=== PATIENT | male | born 1965 | race Caucasian/White ===

== ENCOUNTER 2018-05-15 12:36 | Day surgery (SDC) | payer BC ==
[2018-05-15] MEDS ORDERED: Sodium Chloride 0.9% 10 ML Syringe FLUSH PRN (12:45)
[2018-05-15] MEDS: Lactated Ringers 1,000 ML IV SCH (13:35)
[2018-05-15] MEDS ORDERED: Propofol 200 MG/20 ML SDV ONE ×2 (14:06→14:10)
[2018-05-15] MEDS ORDERED: fentaNYL 100 MCG/2 ML SDV ONE ×2 (14:06→14:10)
[2018-05-15] MEDS ORDERED: Midazolam 1 MG/ML 2 ML SDV ONE ×2 (14:06→14:10)
--- NOTE | 2018-05-15 14:10 | PCM.PN ---
- General Info Date of Service: 05/15/18 - Review of Systems Systems Review Comment:: 53-year-old male here for his initial screening colonoscopy. He denies any family history of colon cancer or any personal history of rectal bleeding. He is medically stable to proceed today. His recent history and physical is reviewed and no significant changes noted. I have discussed the proposed colonoscopy with the patient. Risks such as but not limited to bleeding and GI injury reviewed. He appears to understand and agrees to proceed - Patient Data Vitals - Most Recent: Last Vital Signs Temp 98.3 F 05/15/18 13:10 Pulse 82 05/15/18 13:10 Resp 20 05/15/18 13:10 BP 120/71 05/15/18 13:10 Pulse Ox 95 05/15/18 13:10 Weight - Most Recent: 131.542 kg Med Orders - Current: Current Medications Lactated Ringer's (Ringers, Lactated) 1,000 mls @ 70 mls/hr IV ASDIRECTED CHRISTOPHER Last Admin: 05/15/18 13:35 Dose: 70 mls/hr Sodium Chloride (Saline Flush) 10 ml FLUSH ASDIRECTED PRN PRN Reason: Keep Vein Open Discontinued Medications Fentanyl (Sublimaze) Confirm Administered Dose 100 mcg .ROUTE .STK-MED ONE Stop: 05/15/18 14:07 Midazolam HCl (Versed 1 Mg/Ml) Confirm Administered Dose 2 mg .ROUTE .STK-MED ONE Stop: 05/15/18 14:07 Propofol (Diprivan 20 Ml) Confirm Administered Dose 400 mg .ROUTE .STK-MED ONE Stop: 05/15/18 14:07 - Problem List Review Problem List Initiated/Reviewed/Updated: Yes - Assessment Assessment:: Colon Cancer Screening - Plan Plan:: Colonoscopy
--- NOTE | 2018-05-15 14:59 | PCM.OPNOTE ---
- General Post-Op/Procedure Note Date of Surgery/Procedure: 05/15/18 Operative Procedure(s): Colonoscopy with Polypectomy Findings: 3 moderate sized polyps Pre Op Diagnosis: Colon Cancer Screening Post-Op Diagnosis: Colon Polyps Anesthesia Technique: MAC Primary Surgeon: Galileo Weaver Pathology: Colon Polyps Output, Urine Amount: 0 EBL in mLs: 0 Complications: None Condition: Good Free Text/Narrative:: Intake & Output 05/14/18 05/15/18 05/15/18 22:59 06:59 14:59 Intake Total 600 Balance 600
[2018-05-15 17:00] VITALS: BP 127/84
--- NOTE | 2018-05-16 09:55 | OR ---
Date of Procedure: 05/15/2018 REFERRING PROVIDER: Jesse Dior PA-C PREOPERATIVE DIAGNOSIS: Colon cancer screening. POSTOPERATIVE DIAGNOSIS: Colon polyps. OPERATIONS PERFORMED: Colonoscopy with polypectomy. INDICATIONS FOR SURGERY: This 53-year-old male presents today for his initial screening colonoscopy. He denies any recent rectal bleeding or family history of colon cancer. FINDINGS: Three polyps were noted on today's exam. These were all pedunculated polyps. There was a 7-mm polyp in the sigmoid colon, 25 cm from the anal verge; a 12-mm polyp in the proximal transverse colon; a 14-mm polyp in the hepatic flexure. The remainder of the colon appears normal. DESCRIPTION OF PROCEDURE: The patient was taken to the operating room. He was given intravenous sedation, and with him in the left lateral decubitus position, digital rectal exam was performed showing no rectal masses. The Olympus colonoscope was inserted into the rectum. Retroflexed examination of the rectal canal was performed. The scope was then carefully advanced under direct visualization through the colon to the proximal transverse area where the polyp in this area was identified and removed with a cautery snare. The scope was advanced to the hepatic flexure, where the polyp from this location was also removed with a cautery snare. The scope was then advanced to the cecum and careful examination of the cecum showed no sign of any pathology. No indication of other polyps or lesions. The cecal identity was confirmed by noting the normal internal cecal anatomy and identifying the light to transilluminate the abdominal wall in the right lower quadrant. After examining the cecum, the scope was slowly withdrawn sequentially re-examining the colonic segments. In the sigmoid colon, the above-described polyp there, was identified and also removed with a cautery snare. All the polyps removed during this procedure were retrieved and will be submitted to pathology. The scope was then further withdrawn, and after the exam had been completed and with no sign of any complication, the scope was removed and the patient was taken from the operating room in satisfactory condition. ESTIMATED BLOOD LOSS: Zero. COMPLICATIONS: None. PROGNOSIS: Good. ANUJ Weaver MD /[id number]
== END 2018-05-15 15:50 | disposition home or self-care (01) ==
LOC: LL.SDS 12:36
PROVIDERS: ATTEND Surgery
DX: Z12.11 Encounter for screening for malignant neoplasm of colon (principal); D12.3 Benign neoplasm of transverse colon; K63.5 Polyp of colon; I10 Essential (primary) hypertension; E78.2 Mixed hyperlipidemia; Z79.899 Other long term (current) drug therapy
CPT/HCPCS: J2250; J2704; J3010; J7120

== ENCOUNTER 2019-08-31 20:47 | Emergency (ER) | payer BC ==
[2019-08-31 21:01] VITALS: BP 140/89; PULSE 84
--- NOTE | 2019-08-31 21:03 | EDM.PDOC ---
ED HPI GENERAL MEDICAL PROBLEM - General Chief Complaint: General Stated Complaint: URINARY BLEEDING Time Seen by Provider: 08/31/19 20:56 Source of Information: Reports: Patient History Limitations: Reports: No Limitations - History of Present Illness INITIAL COMMENTS - FREE TEXT/NARRATIVE: Patient comes to ER with complaint of two episodes of hematuria that he note today. No history of hematuria previously. Complains of small amount of aching in bladder area since last void. Denies fever/flank pain/sweating/discharge/ other abdominal pain/frequency. Hx of kidney stones. No emesis/nausea. No other changes/complaints/injuries. - Related Data Allergies Allergy/AdvReac Type Severity Reaction Status Date / Time No Known Allergies Allergy Verified 08/31/19 21:03 Home Meds: Home Meds Amitriptyline [Elavil] 25 mg PO BEDTIME 12/15/14 [History] atorvaSTATin [Lipitor] 20 mg PO BEDTIME 12/15/14 [History] Doxazosin Mesylate [Cardura] 4 mg PO BEDTIME 08/31/19 [History] Past Medical History Cardiovascular History: Reports: High Cholesterol, Hypertension Genitourinary History: Reports: Renal Calculus Musculoskeletal History: Reports: Osteoarthritis Neurological History: Reports: None Endocrine/Metabolic History: Reports: Obesity/BMI 30+ Other Endocrine/Metabolic History: hx of hyperglycemia Dermatologic History: Reports: None - Past Surgical History Male Surgical History: Social & Family History - Tobacco Use Smoking Status *Q: Never Smoker - Caffeine Use Caffeine Use: Reports: Soda - Alcohol Use Alcohol Use in Last Twelve Months: No - Recreational Drug Use Recreational Drug Use: No Drug Use in Last 12 Months: No ED ROS GENERAL - Review of Systems Review Of Systems: See Below Constitutional: Reports: No Symptoms HEENT: Reports: No Symptoms Respiratory: Reports: No Symptoms Cardiovascular: Reports: No Symptoms GI/Abdominal: Reports: Other (mild suprapubic ache). Denies: Constipation, Diarrhea, Decreased Appetite, Difficulty Swallowing, Nausea, Vomiting : Reports: Hematuria. Denies: Discharge, Dysuria, Flank Pain, Frequency, Pain , Urgency, Urinary Retention Musculoskeletal: Reports: No Symptoms Skin: Reports: No Symptoms Neurological: Reports: No Symptoms Psychiatric: Reports: No Symptoms ED EXAM, GENERAL - Physical Exam Exam: See Below Exam Limited By: No Limitations General Appearance: Alert, No Apparent Distress, Obese Eye Exam: Bilateral Eye: EOMI, PERRL Nose: No: Nasal Deformity, Nasal Swelling, Nasal Drainage Throat/Mouth: Normal Lips, Normal Voice, No Airway Compromise Head: Atraumatic, Normocephalic Neck: Normal Inspection, Supple, Non-Tender, Full Range of Motion Respiratory/Chest: No Respiratory Distress, Lungs Clear, Normal Breath Sounds, No Accessory Muscle Use, Chest Non-Tender Cardiovascular: Regular Rate, Rhythm, No Murmur GI/Abdominal: Normal Bowel Sounds, Soft, Non-Tender, No Distention (obese) (Male) Exam: Circumcised. No: Scrotal Swelling, Scrotum Tenderness (L), Scrotum Tenderness (R), Suprapubic Fullness, Testicular Tenderness (L), Testicular Tenderness (R), Urethral Discharge Rectal (Males) Exam: Deferred Back Exam: Normal Inspection. No: CVA Tenderness (L), CVA Tenderness (R) Extremities: Non-Tender, Normal Capillary Refill Neurological: Alert, Normal Cognition, Normal Gait Psychiatric: Normal Affect, Normal Mood Skin Exam: Warm, Dry, Intact, Normal Color Course - Vital Signs Last Recorded V/S: Last Vital Signs Temp 36.8 C 08/31/19 20:50 Pulse 84 08/31/19 20:50 Resp 16 08/31/19 20:50 BP 140/89 08/31/19 20:50 Pulse Ox 98 08/31/19 20:50 - Orders/Labs/Meds Orders: Active Orders 24 hr Category Date Time Status Abdomen Pelvis wo Cont [CT] Stat Exams 08/31/19 21:21 Ordered Ondansetron [Zofran ODT] Med 08/31/19 22:16 Once 4 mg PO ONETIME ONE Tamsulosin [Flomax] Med 08/31/19 22:16 Once 0.4 mg PO ONETIME ONE Labs: Laboratory Tests 08/31/19 08/31/19 08/31/19 Range/Units 20:57 21:05 21:05 WBC 9.9 (4.0-10.2) K/uL RBC 4.60 (4.33-5.41) M/uL Hgb 14.5 (13.1-16.8) g/dL Hct 42.5 (39.0-49.0) % MCV 92.4 (84.0-98.0) fL MCH 31.5 (28.2-33.3) pg MCHC 34.1 (31.7-36.0) g/dL RDW 13.1 (11.2-14.1) % Plt Count 237 (150-350) K/uL Neut % (Auto) 75.7 (45.0-80.0) % Lymph % (Auto) 12.4 (10.0-50.0) % [place] % (Auto) 9.4 (2.0-14.0) % Eos % (Auto) 2.1 (0.0-5.0) % Baso % (Auto) 0.4 (0.0-2.0) % Neut # (Auto) 7.52 H (1.40-7.00) K/uL Lymph # (Auto) 1.23 (0.50-3.50) K/uL [place] # (Auto) 0.93 (0.00-1.00) K/uL Eos # (Auto) 0.21 (0.00-0.50) K/uL Baso # (Auto) 0.04 (0.00-0.20) K/uL Sodium 138 (136-145) mmol/L Potassium 3.3 L (3.5-5.1) mmol/L Chloride 102 (98-107) mmol/L Carbon Dioxide 25.4 (21.0-32.0) mmol/L BUN 14 (7-18) mg/dL Creatinine 0.72 (0.51-1.17) mg/dL Est Cr Clr Drug Dosing 147.35 mL/min Estimated GFR (MDRD) > 60 mL/min Glucose 154 H (74-106) mg/dL Calcium 8.3 L (8.5-10.1) mg/dL Total Bilirubin 0.6 (0.2-1.0) mg/dL AST 24 (15-37) U/L ALT 38 (12-78) U/L Alkaline Phosphatase 79 (46-116) IU/L Total Protein 7.1 (6.4-8.2) g/dL Albumin 3.7 (3.4-5.0) g/dL Specimen Type Urinblad Urine Color Red Urine Appearance Cloudy Urine pH 7.0 (5.0-9.0) Ur Specific Louann 1.020 (1.005-1.030) Urine Protein Trace H (NEGATIVE) mg/dL Urine Glucose (UA) Negative (NEGATIVE) mg/dL Urine Ketones Negative (NEGATIVE) mg/dL Urine Occult Blood Large H (NEGATIVE) Urine Nitrite Negative (NEGATIVE) Urine Bilirubin Negative (NEGATIVE) Urine Urobilinogen 0.2 (0.2-1.0) E.U./dL Ur Leukocyte Esterase Negative (NEGATIVE) Urine RBC 75-100 H /HPF Urine WBC Not seen /HPF Ur Epithelial Cells Not seen /LPF Urine Bacteria Few (NONE TO FEW) /HPF Meds: Medications Discontinued Medications Generic Name Dose Route Start Last Admin Trade Name Freq PRN Reason Stop Dose Admin Potassium Chloride 40 meq 08/31/19 21:30 08/31/19 22:05 Klor-Con M20 PO 08/31/19 21:31 40 meq ONETIME ONE Administration - Radiology Interpretation CT Results Date: 08/31/19 CT Results Time: 22:10 (3.9 mm stone at UVJ on left) - Re-Assessments/Exams Free Text/Narrative Re-Assessment/Exam: 08/31/19 21:06 UA/CBC/Chem ordered. 08/31/19 21:22 CT of abdomen and pelvis ordered. UA showed elevated RBCs but normal WBC. CBC unremarkable. Chem noted K of 3.3 Free Text/Narrative Re-Assessment/Exam: 08/31/19 22:17 CT scan identified renal calculus at left UVJ. Will give patient Toradol take home pack for prn pain. Also single Zofran and Flomax dose. Precautions reviewed. To follow up as needed if worsening problems develop/stone does not pass. Departure - Departure Time of Disposition: 22:30 Disposition: Home, Self-Care 01 Condition: Good Clinical Impression: Kidney stone on left side - Discharge Information *PRESCRIPTION DRUG MONITORING PROGRAM REVIEWED*: Not Applicable *COPY OF PRESCRIPTION DRUG MONITORING REPORT IN PATIENT ROGER: Not Applicable Instructions: Kidney Stones, [id number] Referrals: Jesse Dior PA [Primary Care Provider] - Forms: ED Department Discharge Additional Instructions: Drink plenty of water. Take Toradol one tab every 6 hours prn pain. Do not take any Aleve/naprosyn/ibuprofen if you are taking Toradol. However you CAN take Tylenol at same time. Follow up for recheck if stone has not passed within several days or if you have sudden worsening problems. Sepsis Event Note - Focused Exam Vital Signs: Vital Signs Temp Pulse Resp BP Pulse Ox 08/31/19 20:50 36.8 C 84 16 140/89 98 Date Exam was Performed: 08/31/19 Time Exam was Performed: 22:16 - My Orders Last 24 Hours: My Active Orders 08/31/19 21:21 Abdomen Pelvis wo Cont [CT] Stat 08/31/19 22:16 Ondansetron [Zofran ODT] 4 mg PO ONETIME ONE Tamsulosin [Flomax] 0.4 mg PO ONETIME ONE - Assessment/Plan Last 24 Hours: My Active Orders 08/31/19 21:21 Abdomen Pelvis wo Cont [CT] Stat 08/31/19 22:16 Ondansetron [Zofran ODT] 4 mg PO ONETIME ONE Tamsulosin [Flomax] 0.4 mg PO ONETIME ONE
[2019-08-31 21:24] LABS: CHLORIDE,CL 102 mmol/L (98-107); SODIUM,NA 138 mmol/L (136-145)
[2019-08-31] MEDS ORDERED: Potassium Chloride 20 MEQ Tab.ER PO ONE (21:30)
[2019-08-31] MEDS ORDERED: Tamsulosin 0.4 MG Cap.ER PO ONE (22:16)
[2019-08-31] MEDS ORDERED: Ondansetron 4 MG Tab.DIS PO ONE (22:16)
== END 2019-08-31 22:30 | disposition home or self-care (01) ==
LOC: LL.ED 20:47
DX: N20.2 Calculus of kidney with calculus of ureter (principal); I10 Essential (primary) hypertension; E78.00 Pure hypercholesterolemia, unspecified; E66.9 Obesity, unspecified; Z68.35 Body mass index [BMI] 35.0-35.9, adult; Z79.899 Other long term (current) drug therapy
CPT/HCPCS: 36415; 74176; 80053; 81001; 85025; 99284-25; A9270-GY

== ENCOUNTER 2023-06-13 10:40 | Day surgery (SDC) | payer BC ==
[~2023-06-13 10:40] MED LIST: Lactated Ringers 1,000 ML IV SCH; Midazolam 1 MG/ML 2 ML SDV ONE; Propofol 200 MG/20 ML SDV ONE; Sodium Chloride 0.9% 10 ML Syringe FLUSH PRN
[2023-06-13 13:00] VITALS: BP 129/83; PULSE 69
== END 2023-06-13 13:15 | disposition home or self-care (01) ==
LOC: LL.SDS 10:40
PROVIDERS: ATTEND Surgery
DX: Z12.11 Encounter for screening for malignant neoplasm of colon (principal); E78.2 Mixed hyperlipidemia; I10 Essential (primary) hypertension; Z79.899 Other long term (current) drug therapy
CPT/HCPCS: 00812; 82947; J2250; J2704; J7120

== ENCOUNTER 2023-08-19 21:15 | Emergency (ER) | payer BC ==
[2023-08-19] MEDS ORDERED: Sodium Chloride 0.9% 10 ML Syringe FLUSH PRN (21:20)
[2023-08-19] MEDS ORDERED: Tamsulosin 0.4 MG Cap.ER PO ONE (21:21)
[2023-08-19] MEDS ORDERED: Ketorolac 15 MG/ML SDV IVPUSH ONE (21:21)
[2023-08-19] MEDS ORDERED: Sodium Chloride 0.9% 1,000 ML IV ONE (21:21)
[2023-08-19] MEDS ORDERED: Ondansetron 4 MG/2 ML SDV IVPUSH ONE (21:31)
[2023-08-19 21:36] LABS: APPEARANCE,URINE CLEAR; BILIRUBIN,URINE SMALL (NEGATIVE); COLOR,URINE YELLOW; GLUCOSE,URINE NEGATIVE (NEGATIVE); KETONES,URINE NEGATIVE (NEGATIVE); LEUKOCYTE ESTERASE,URINE NEGATIVE (NEGATIVE); NITRITE,URINE NEGATIVE (NEGATIVE); OCCULT BLOOD,URINE NEGATIVE (NEGATIVE); PH,URINE 5.5 (5.0-9.0); PROTEIN,URINE 30 mg/dL (NEGATIVE); UROBILINOGEN,URINE 0.2 E.U./dL (0.2-1.0)
[2023-08-19 21:40] LABS: BASOPHILS ABSOLUTE AUTO 0.03 K/uL (0.00-0.20); BASOPHILS PERCENT AUTO 0.3 % (0.0-2.0); EOSINOPHILS ABSOLUTE AUTO 0.16 K/uL (0.00-0.50); EOSINOPHILS PERCENT AUTO 1.4 % (0.0-5.0); HEMATOCRIT 41.5 % (39.0-49.0); HEMOGLOBIN 14.2 g/dL (13.1-16.8); LYMPHOCYTES ABSOLUTE AUTO 0.85 K/uL (0.50-3.50); LYMPHOCYTES PERCENT AUTO 7.3 % (10.0-50.0); MEAN CORPUSCULAR HEMOGLOBIN 32.1 pg (28.2-33.3); MEAN CORPUSCULAR HGB CONC 34.2 g/dL (31.7-36.0); MEAN CORPUSCULAR VOLUME 93.9 fL (84.0-98.0); MONOCYTES PERCENT AUTO 6.9 % (2.0-14.0); NEUTROPHILS ABSOLUTE AUTO 9.75 K/uL (1.40-7.00); NEUTROPHILS PERCENT AUTO 84.1 % (45.0-80.0); PLATELET COUNT,PLT 272 K/uL (150-350); RED BLOOD CELL COUNT 4.42 M/uL (4.33-5.41); RED CELL DISTRIBUTION WIDTH 13.1 % (11.2-14.1); WHITE BLOOD CELL COUNT,WBC 11.6 K/uL (4.0-10.2)
[2023-08-19 22:04] LABS: ALANINE AMINOTRANSFERASE,ALT 30 U/L (12-78); ALBUMIN 3.6 g/dL (3.4-5.0); ALKALINE PHOSPHATASE 76 IU/L (46-116); ANION GAP 12.7 meq/L (7-15); ASPARTATE AMNIOTRANSFERASE,AST 17 U/L (15-37); BILIRUBIN TOTAL 0.6 mg/dL (0.2-1.0); BLOOD UREA NITROGEN,BUN 16 mg/dL (7-18); CALCIUM 8.4 mg/dL (8.5-10.1); CARBON DIOXIDE,CO2 24.3 mmol/L (21.0-32.0); CHLORIDE,CL 103 mmol/L (98-107); CREATININE 1.02 mg/dL (0.51-1.17); GLUCOSE RANDOM 195 mg/dL (70-99); POTASSIUM,K 3.7 mmol/L (3.5-5.1); PROTEIN TOTAL,TP 7.1 g/dL (6.4-8.2); SODIUM,NA 140 mmol/L (136-145)
[2023-08-19 22:06] LABS: ESTIMATED GFR 86 mL/min (>=60)
[2023-08-19] MEDS ORDERED: Take Home: Ondansetron 4 MG Tab.DIS, 5 Tab Pack PO ONE (22:35)
[2023-08-19] MEDS ORDERED: Take Home: Ketorolac 10 MG Tab, 4 Tab Pack PO ONE (22:36)
[2023-08-19] MEDS ORDERED: Take Home: oxyCODONE HCl 5 MG Tab, 5 Tab Pack PO ONE (22:36)
[2023-08-19 23:29] VITALS: PULSE 79
== END 2023-08-19 23:00 | disposition home or self-care (01) ==
LOC: LL.ED 21:15
DX: R10.9 Unspecified abdominal pain (principal); I10 Essential (primary) hypertension; E78.00 Pure hypercholesterolemia, unspecified; E66.9 Obesity, unspecified; Z79.899 Other long term (current) drug therapy
CPT/HCPCS: 36415; 80053; 81003; 85025; 96361; 96374; 96375; 99284; 99284-25; A9270-GY; J1885; J2405; J7030; Q0162

== ENCOUNTER 2025-01-15 16:01 | Emergency (ER) | payer BC ==
[2025-01-15 16:25] VITALS: BP 151/92; PULSE 82
[2025-01-15 16:40] LABS: BASOPHILS ABSOLUTE AUTO 0.03 K/uL (0.00-0.20); BASOPHILS PERCENT AUTO 0.3 % (0.0-2.0); EOSINOPHILS ABSOLUTE AUTO 0.08 K/uL (0.00-0.50); EOSINOPHILS PERCENT AUTO 0.8 % (0.0-5.0); HEMATOCRIT 43.3 % (39.0-49.0); IMMATURE GRAN ABSOLUTE AUTO 0.02 10^3/uL (0.00-0.04); IMMATURE GRAN PERCENT AUTO 0.2 % (0.0-0.4); LYMPHOCYTES ABSOLUTE AUTO 0.82 K/uL (0.50-3.50); LYMPHOCYTES PERCENT AUTO 7.8 % (10.0-50.0); MEAN CORPUSCULAR HEMOGLOBIN 31.8 pg (28.2-33.3); MEAN CORPUSCULAR HGB CONC 34.6 g/dL (31.7-36.0); MEAN CORPUSCULAR VOLUME 91.9 fL (84.0-98.0); MONOCYTES ABSOLUTE AUTO 1.01 K/uL (0.00-1.00); MONOCYTES PERCENT AUTO 9.6 % (2.0-14.0); NEUTROPHILS ABSOLUTE AUTO 8.51 K/uL (1.40-7.00); NEUTROPHILS PERCENT AUTO 81.3 % (45.0-80.0); PLATELET COUNT,PLT 261 K/uL (150-350); RED BLOOD CELL COUNT 4.71 M/uL (4.33-5.41); RED CELL DISTRIBUTION WIDTH 12.6 % (11.2-14.1); WHITE BLOOD CELL COUNT,WBC 10.5 K/uL (4.0-10.2)
[2025-01-15 17:00] LABS: ALBUMIN 3.8 g/dL (3.4-5.0); ANION GAP 7.1 meq/L (7-15); BILIRUBIN TOTAL 0.9 mg/dL (0.2-1.0); CALCIUM 9.2 mg/dL (8.5-10.1); CARBON DIOXIDE,CO2 26.9 mmol/L (21.0-32.0); CREATININE 1.09 mg/dL (0.51-1.17); EST CRCL DRUG DOSING (CG) 91.8 mL/min; POTASSIUM,K 3.6 mmol/L (3.5-5.1); PROTEIN TOTAL,TP 7.6 g/dL (6.4-8.2); PROTHROMBIN TIME 10.4 SEC (9.0-11.1)
[2025-01-15] MEDS: Tamsulosin 0.4 MG Cap.ER PO ONE (17:04)
[2025-01-15] MEDS: Ketorolac 30 MG/ML SDV IVPUSH ONE (17:04)
[2025-01-15] MEDS: Sodium Chloride 0.9% 10 ML Syringe FLUSH PRN (17:05)
[2025-01-15 17:21] LABS: APPEARANCE,URINE CLEAR (CLEAR); COLOR,URINE DARK YELLOW (YELLOW)
[2025-01-15 17:24] LABS: BILIRUBIN,URINE NEGATIVE (NEGATIVE); GLUCOSE,URINE NEGATIVE (NEGATIVE); KETONES,URINE NEGATIVE (NEGATIVE); LEUKOCYTE ESTERASE,URINE NEGATIVE (NEGATIVE); NITRITE,URINE NEGATIVE (NEGATIVE); OCCULT BLOOD,URINE MODERATE (NEGATIVE); PH,URINE 5.5 (5.0-9.0); PROTEIN,URINE 30 mg/dL (NEGATIVE); UROBILINOGEN,URINE 0.2 E.U./dL (0.2-1.0)
[2025-01-15 17:25] LABS: EPITHELIAL CELLS,URINE FEW /LPF; RBC,URINE 50-75 /HPF; WBC,URINE 0-5 /HPF
[2025-01-15 17:26] LABS: AMORPHOUS SEDIMENT,URINE FEW /HPF (0/HPF); BACTERIA,URINE NOT SEEN /HPF (NONE TO FEW); MUCUS,URINE MANY /LPF (NEGATIVE)
[2025-01-15] MEDS: Take Home: Acetaminophen/HYDROcodone 325-5 MG, 5 Tab Pack PO ONE (18:34)
[2025-01-15] MEDS: Take Home: Tamsulosin HCl 0.4 MG, 6 Cap Pack PO ONE (18:34)
== END 2025-01-15 18:50 | disposition home or self-care (01) ==
LOC: LL.ED 16:01
DX: N13.2 Hydronephrosis with renal and ureteral calculous obstruction (principal); I10 Essential (primary) hypertension; E78.00 Pure hypercholesterolemia, unspecified; Z79.899 Other long term (current) drug therapy
CPT/HCPCS: 36415; 74176; 80053; 81001; 85025; 85610; 96374; 99284; 99284-25; A9270-GY; J1885